=== PATIENT | female | born 1965 | race African-American/Black ===

== ENCOUNTER 2025-09-09 12:58 | Emergency (ER) | payer MEDICAID, OTHER ==
[~2025-09-09] VITALS: Ht 190.5 cm; Wt 68.0 kg
[2025-09-09 13:20] LABS: PLATELET COUNT (AUTO) 248 K/uL (179-408); RED BLOOD CELL COUNT(AUTO) 4.03 MIL/uL (3.63-4.92); RED CELL DISTRIBUTION WIDTH 12.3 % (12.3-17.7); WHITE BLOOD COUNT (AUTO) 8.1 K/uL (3.8-11.8)
[2025-09-09] MEDS: IV NORMAL SALINE 1000 ML BAG IV ONE (13:26)
[2025-09-09 13:31] LABS: CREATININE 1.1 mg/dL (0.6-1.3); SODIUM SERUM 136.0 mmol/L (136-145); UREA NITROGEN, BLOOD 20.0 mg/dL (7-18)
[2025-09-09] MEDS ORDERED: INSULIN REGULAR, HUMAN 1000 UNIT/10 ML VIAL ONE (13:58)
[2025-09-09] MEDS ORDERED: POTASSIUM BICARBONATE/CIT AC 25 MEQ TABLET.EFF ONE (13:58)
[2025-09-09] MEDS ORDERED: FOSFOMYCIN TROMETHAMINE 3 GM PACKET ONE (13:58)
[2025-09-09] MEDS: FOSFOMYCIN TROMETHAMINE 3 GM PACKET PO ONE (14:03)
[2025-09-09] MEDS: INSULIN REGULAR, HUMAN 1000 UNIT/10 ML VIAL SQ ONE (14:06)
[2025-09-09] MEDS: POTASSIUM BICARBONATE/CIT AC 25 MEQ TABLET.EFF PO ONE (14:09)
[2025-09-09] MEDS ORDERED: CEFTRIAXONE /D5W 50ML IVPB **ER PYXIS IV ONE ×2 (14:12→14:25)
[2025-09-09] MEDS ORDERED: ONDANSETRON 4 MG/2 ML VIAL IV ONE (14:15)
[2025-09-09] MEDS: IV NS 1000 ML 1,000 ML IV PRN (14:19)
[2025-09-09 14:25] LABS: ASPARTATE AMINOTRANSFERASE 14.0 U/L (15-37); TOTAL PROTEIN, SERUM 6.1 g/dL (6.4-8.2)
[2025-09-09] MEDS ORDERED: BUPR300T52 PO (14:25)
[2025-09-09] MEDS ORDERED: LURA40TA PO (14:25)
[2025-09-09] MEDS ORDERED: ASPI81TA31 PO (14:25)
[2025-09-09] MEDS ORDERED: SITA1TAB2 PO (14:25)
[2025-09-09] MEDS ORDERED: ATOR20TA PO (14:25)
[2025-09-09] MEDS ORDERED: OXYB15TA19 PO (14:25)
[2025-09-09] MEDS ORDERED: LOSA25TA27 PO (14:25)
[2025-09-09] MEDS ORDERED: OMEP20CA15 PO (14:25)
[2025-09-09 15:30] LABS: CREATININE 0.8 mg/dL (0.6-1.3); SODIUM SERUM 140.0 mmol/L (136-145); UREA NITROGEN, BLOOD 18.0 mg/dL (7-18)
[2025-09-09 15:48] LABS: *BILIRUBIN,URIN NEGATIVE (NEGATIVE); *KETONES,URINE NEGATIVE (NEGATIVE); *PROTEIN,URINE NEGATIVE (NEGATIVE); *UROBILINOGEN,URINE 0.2 E.U./dl (NORMAL); LEUKOCYTE ESTERASE ,URINE NEGATIVE (NEGATIVE); NITRITE, URINE POSITIVE (NEGATIVE)
[2025-09-09 15:50] LABS: *CLARITY,URINE SLIGHTLY HAZY (CLEAR); *COLOR,URINE LIGHT YELLOW (YELLOW); UGLUCOSE 2+ (NEGATIVE)
[2025-09-09 15:53] LABS: *URINE HCG, QUAL NEGATIVE (NEGATIVE)
[2025-09-09 16:08] LABS: *BLOOD, URINE TRACE (NEGATIVE)
[2025-09-09 16:21] LABS: SQUAMOUS EPITHELIAL CELL,UR FEW /HPF (NONE SEEN)
[2025-09-09 16:40] LABS: *BILIRUBIN,URIN NEGATIVE (NEGATIVE); *CLARITY,URINE CLEAR (CLEAR); *COLOR,URINE LIGHT YELLOW (YELLOW); *KETONES,URINE NEGATIVE (NEGATIVE); *PROTEIN,URINE NEGATIVE (NEGATIVE); *UROBILINOGEN,URINE 0.2 E.U./dl (NORMAL); LEUKOCYTE ESTERASE ,URINE NEGATIVE (NEGATIVE); NITRITE, URINE POSITIVE (NEGATIVE)
[2025-09-09 16:44] LABS: *BLOOD, URINE TRACE (NEGATIVE); UGLUCOSE 2+ (NEGATIVE)
[2025-09-09 16:53] LABS: SQUAMOUS EPITHELIAL CELL,UR MODERATE /HPF (NONE SEEN)
[2025-09-09 18:00] VITALS: BP 128/74; O2SAT 97
== END 2025-09-09 22:16 ==
LOC: ER 12:58
DX: E11.65 Type 2 diabetes mellitus with hyperglycemia (principal); I10 Essential (primary) hypertension; E86.0 Dehydration; R06.02 Shortness of breath; E78.5 Hyperlipidemia, unspecified; Z59.00 Homelessness unspecified; Z79.82 Long term (current) use of aspirin; Z79.84 Long term (current) use of oral hypoglycemic drugs; Z79.899 Other long term (current) drug therapy
CPT/HCPCS: 36415; 71045; 83735; 84100; 84703; 85025; 87077; 87086; 93005; 98960; A4606; A4663; J0696; J1815; J7040